=== PATIENT | male | born 2000 | race African-American/Black ===

== ENCOUNTER 2020-07-31 02:56 | Emergency (ER) | payer SELFPAY ==
[~2020-07-31] VITALS: Ht 190.5 cm; Wt 77.0 kg
--- NOTE | 2020-07-31 03:14 | PHYS DOC ---
Past History Alcohol Use: Occasionally Drug Use: Marijuana, Other (Street fentanyl and narcotics-nasal ( Snorted)) General Adult EDM: Chief Complaint: OVERDOSE HPI: HPI: ".. I thnik I snorted a Percocet.. ".. "I been coughing up some blood..." Patient is a 20 year old male who presents with above hx and complaints of over dosage of narcotic. Pt. respiratory failure, did respond to Narcan in field. Patient initially in respiratory arrest with sats in 70s. Patient does admit to past marijuana use and tobacco. No history immunosuppression. No history of travel. No history of specific ill contacts. Patient denies other drug use. Patient did give me permission to talk to mother and father. Discussed presentation with mother and father. They advised to their knowledge he did not abuse narcotics. Has been previously healthy. No history of family of pulmonary embolisms or DVTs or coagulopathy. No history recent travel outside the [place] area. No specific ill contacts. Patient admits to some " Snorting a Percocet. " Does have some nasal bleeding and coughing up some blood. Patient advised I could discuss his health history with his mother and father. Patient denies any recent fever, chills, or cough. Has had a cough with streaks of blood. Patient denies any history of tuberculosis contacts. Denies any recent fever or chills. Patient states all his respiratory symptoms started after snorting a reported crushed Percocet, b ut pt. advised may have been street fentanyl. Review of Systems: Review of Systems: Constitutional: Denies fever or chills Eyes: Denies change in visual acuity HENT: Denies nasal congestion or sore throat Respiratory: Complains of cough and shortness of breath Cardiovascular: Denies chest pain or edema GI: Denies abdominal pain, nausea, vomiting, bloody stools or diarrhea : Denies dysuria Musculoskeletal: Denies back pain or joint pain Integument: Denies rash Neurologic: Denies headache, focal weakness or sensory changes Endocrine: Denies polyuria or polydipsia Lymphatic: Denies swollen glands Psychiatric: Denies depression or anxiety Family History: Family History: Noncontributory to presentation Current Medications: Current Meds: See nursing for home meds Allergies: Allergies: No known drug allergies Physical Exam: PE: Constitutional: Well developed, well nourished, in acute distress, non-toxic appearance. [] HENT: Normocephalic, atraumatic, bilateral external ears normal, oropharynx moist, no oral exudates, nose very inflamed turbinates and mild Kisselbach bleeding bilateral. Eyes: PERRLA, EOMI, conjunctiva normal, no discharge. [] Neck: Normal range of motion, no tenderness, supple, no stridor. [] Cardiovascular: Tachycardia heart rate regular rhythm, no murmur [] Lungs & Thorax: Bilateral breath sounds equal at apex with crackles and some scattered wheezes throughout on auscultation []. Appears to have increased crackles and rhonchi in the left lung field. Patient hypoxic on room air in the 80s. Abdomen: Bowel sounds normal, soft, no tenderness, no masses, no pulsatile m asses. [] Skin: Warm, dry, no erythema, no rash. No IV injection sites noted Back: No tenderness, no CVA tenderness. [] Extremities: No tenderness, no cyanosis, no clubbing, ROM intact, no edema. No cording in legs. Neurologic: Alert and oriented X 3, moves all extremities on request, does have distal sensory, no focal deficits noted. [] Psychologic: Affect anxious, judgement normal, mood normal. [] EKG: EKG: My interpretation of EKG shows a sinus rhythm at 85 bpm. Mild J-point elevation but no findings of acute contralateral changes consistent with STEMI . Is an abnormal EKG. [] Radiology/Procedures: Radiology/Procedures: [address] [address] IMAGING REPORT Signed PATIENT: RUY VITALE ACCOUNT: [id number] : 2000 LOCATION: ER AGE: 20 SEX: M EXAM STATUS: REG ER ORD. PHYSICIAN: DERRICK FANG MD REASON: hypoxia, OMNI 350, 100ml PROCEDURE: CT ANGIOGRAPHY CHEST EXAM: CT ANGIOGRAPHY OF THE CHEST WITH AND WITHOUT CONTRAST. HISTORY: Hypoxia. TECHNIQUE: Computed tomographic angiography of the chest was performed before and after the intravenous administration of iodinated contrast. 3-D maximum intensity projections were also performed. One or more of the following individualized dose reduction techniques were utilized for this examination: 1. Automated exposure control. 2. Adjustment of the mA and/or kV according to patient size. 3. Use of iterative reconstruction technique. COMPARISON: None. FINDINGS: Images of the upper abdomen reveal no acute abnormality. Bone windows reveal no suspicious lesions. No pulmonary emboli are identified. There is no aortic dissection or aneurysm. There is a normal variant origin of the left vertebral artery directly from the aortic arch. Soft tissue density in the anterior mediastinal fat most likely reflects a thymic remnant. There are no pathologically enlarged mediastinal or axillary lymph nodes. There is no pleural or pericardial effusion. The heart is not enlarged. There are patchy and nodular groundglass infiltrates on the left greater than right in a relatively perihilar pattern. No endobronchial lesion or source for hemoptysis is identified. IMPRESSION: 1. Mild infiltrates on the left greater than right are consistent with atypical pneumonia, aspiration or possibly noncardiogenic pulmonary edema. 2. No pulmonary embolism. Electronically signed by: Massimo Sanchez MD (07/31/2020 5:17 AM) [facility] DICTATED AND SIGNED BY: YUKO SANCHEZ MD DATE: 07/31/20 05 CC: DERRICK FANG MD; PCP,NO ~ [][place] [address] IMAGING REPORT Signed PATIENT: RUY VITALE ACCOUNT: [id number] : 2000 LOCATION: ER AGE: 20 SEX: M EXAM STATUS: REG ER ORD. PHYSICIAN: DERRICK FANG MD REASON: cough up blood, hx hypoxia PROCEDURE: PORTABLE CHEST 1V EXAM: CHEST ONE VIEW. HISTORY: Hypoxia, hemoptysis. COMPARISON: Today's CT. FINDINGS: A frontal view of the chest is obtained. Mild airspace infiltrates on the left greater than right are better seen on today's CT. There is no pneumothorax or pleural effusion. The heart is not enlarged. IMPRESSION: 1. Mild atypical pneumonia versus noncardiogenic pulmonary edema pattern. Electronically signed by: Massimo Sanchez MD (07/31/2020 5:14 AM) [facility] DICTATED AND SIGNED BY: YUKO SANCHEZ MD DATE: 07/31/20 0514 CC: DERRICK FANG MD; PCP,NO ~ Heart Score: HEART Score for Chest Pain: HEART Score for Chest Pain Response (Comments) Value History Slighlty/Non-Suspicious 0 ECG Nonspecific Repolarizatio 1 Age < 45 0 Risk Factors 1 or 2 Risk Factors 1 Troponin < Normal Limit 0 Total 2 Risk Factors: Risk Factors: DM, Current or recent (<one month) smoker, HTN, HLP, family history of CAD, obesity. Risk Scores: Score 0 - 3: 2.5% MACE over next 6 weeks - Discharge Home Score 4 - 6: 20.3% MACE over next 6 weeks - Admit for Clinical Observation Score 7 - 10: 72.7% MACE over next 6 weeks - Early Invasive Strategies Course & Med Decision Making: Course & Med Decision Making Pertinent Labs and Imaging studies reviewed. (See chart for details) Discussed presentation testing and treatment plan with mother and father and patient. Discussed presentation testing and treatment plan with . Plan transfer to [facility] for Pulmonary consult. Will not cover with antibiotics at this time with no fever and normal white count. Suspect this is noncardiac pulmonary edema second to the narcotic overdose. Also possible case of viral syndrome with atypical pneumonia. Plan Covid testing after he arrives at [facility] since we do not have rapid Covid testing here at [facility]. Patient initial troponin was normal. Alcohol level is 29. Normal troponin.0.036 Critical care 90 min. Impression: 1. Narcotic Overdose- Responded to Narcan 2. Respiratory failure- hypoxia 3. Diffuse pulmonary infiltrates-noncardiac pulmonary edema secondary to narcotic overdose versus atypical viral pneumonia versus aspiration pneumonitis 4. Elevation D-dimer 2.16 [] Dragon Disclaimer: Dragon Disclaimer: This electronic medical record was generated, in whole or in part, using a voice recognition dictation system. Departure Departure: Disposition: 01 DC HOME SELF CARE/HOMELESS Condition: STABLE DERRICK FANG MD Jul 31, 2020 03:14
[2020-07-31] MEDS ORDERED: IOHEXOL 350 MG/ML 100 ML VIAL. IV ONE (03:45)
[2020-07-31] MEDS ORDERED: CONTRAST GIVEN. MC PRN (03:45)
[2020-07-31] MEDS ORDERED: IV RINGERS SOLUTION,LACTATED 1,000 ML IV SCH (03:45)
[2020-07-31] MEDS ORDERED: ALBUTEROL SULFATE 8GM INHALER. INH ONE (03:45)
[2020-07-31 04:13] LABS: BGAS PH 7.37 (7.35-7.46)
[2020-07-31 04:18] LABS: BASO % 1 % (0-3); EOS % 1 % (0-3); HEMATOCRIT 40.7 % (39.0-53.0); HEMOGLOBIN 13.4 g/dL (13.0-17.5); LYMPH # 1.1 x10^3/uL (1.0-4.8); LYMPH % 19 % (24-48); MEAN CORPUSCULAR HEMOGLOBIN 28 pg (25-35); MEAN CORPUSCULAR HGB CONC 33 g/dL (31-37); MEAN CORPUSCULAR VOLUME 86 fL (79-100); MONO # 0.5 x10^3/uL (0.0-1.1); MONO % 9 % (0-9); NEUT # 4.1 x10^3uL (1.8-7.7); NEUT % 70 % (31-73); PLATELET COUNT 267 x10^3/uL (140-400); RED BLOOD COUNT 4.72 x10^6/uL (4.30-5.70); WHITE BLOOD COUNT 5.8 x10^3/uL (4.0-11.0)
[2020-07-31 04:28] LABS: CALCIUM 8.8 mg/dL (8.5-10.1); CREATININE 1.2 mg/dL (0.7-1.3); GFR 92.5; POTASSIUM 3.7 mmol/L (3.5-5.1)
[2020-07-31 04:34] LABS: DIRECT BILIRUBIN 0.2 mg/dL (0.0-0.2); MAGNESIUM 1.8 mg/dL (1.8-2.4); TOTAL BILIRUBIN 0.5 mg/dL (0.2-1.0); TOTAL PROTEIN 7.5 g/dL (6.4-8.2)
--- NOTE | 2020-07-31 05:17 | RAD ---
EXAM: CHEST ONE VIEW. HISTORY: Hypoxia, hemoptysis. COMPARISON: Today's CT. FINDINGS: A frontal view of the chest is obtained. Mild airspace infiltrates on the left greater than right are better seen on today's CT. There is no pneumothorax or pleural effusion. The heart is not enlarged. IMPRESSION: 1. Mild atypical pneumonia versus noncardiogenic pulmonary edema pattern. Electronically signed by: Massimo Sanchez MD (07/31/2020 5:14 AM) [facility]
--- NOTE | 2020-07-31 05:20 | RAD ---
EXAM: CT ANGIOGRAPHY OF THE CHEST WITH AND WITHOUT CONTRAST. HISTORY: Hypoxia. TECHNIQUE: Computed tomographic angiography of the chest was performed before and after the intravenous administration of iodinated contrast. 3-D maximum intensity projections were also performed. One or more of the following individualized dose reduction techniques were utilized for this examination: 1. Automated exposure control. 2. Adjustment of the mA and/or kV according to patient size. 3. Use of iterative reconstruction technique. COMPARISON: None. FINDINGS: Images of the upper abdomen reveal no acute abnormality. Bone windows reveal no suspicious lesions. No pulmonary emboli are identified. There is no aortic dissection or aneurysm. There is a normal variant origin of the left vertebral artery directly from the aortic arch. Soft tissue density in the anterior mediastinal fat most likely reflects a thymic remnant. There are no pathologically enlarged mediastinal or axillary lymph nodes. There is no pleural or pericardial effusion. The heart is not enlarged. There are patchy and nodular groundglass infiltrates on the left greater than right in a relatively perihilar pattern. No endobronchial lesion or source for hemoptysis is identified. IMPRESSION: 1. Mild infiltrates on the left greater than right are consistent with atypical pneumonia, aspiration or possibly noncardiogenic pulmonary edema. 2. No pulmonary embolism. Electronically signed by: Massimo Sanchez MD (07/31/2020 5:17 AM) [facility]
--- NOTE | 2020-07-31 06:23 | EKG ---
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
[2020-07-31 06:45] LABS: BARBITURATES NEG (NEG); BENZODIAZEPINES NEG (NEG); CANNABINOIDS POS (NEG); COCAINE NEG (NEG); METHADONE NEG (NEG); OPIATES NEG (NEG); PHENCYCLIDINE NEG (NEG)
[2020-07-31 06:47] LABS: AMPHETAMINE/METHAMPHETAMINE NEG (NEG)
[2020-07-31 07:20] VITALS: BP 132/46
[2020-07-31 07:36] LABS: BACTERIA,URINE 0 /HPF (0-FEW); BILIRUBIN,URINE NEG (NEG); CLARITY,URINE CLEAR; COLOR,URINE YELLOW; GLUCOSE,URINE NEG (NEG); NITRITE,URINE NEG (NEG); SQUAMOUS EPITHELIAL CELL,UR OCC /LPF; UROBILINOGEN,URINE 0.2 mg/dL (0.2 mg/dL)
[2020-07-31 07:37] LABS: HYALINE CASTS, URINE OCC /HPF
== END 2020-07-31 08:31 | disposition short-term general hospital (02) ==
LOC: ER 02:56
DX: T40.691A Poisoning by other narcotics, accidental (unintentional), initial encounter (principal); J96.91 Respiratory failure, unspecified with hypoxia; J81.1 Chronic pulmonary edema; R79.1 Abnormal coagulation profile; F12.10 Cannabis abuse, uncomplicated; Y92.89 Other specified places as the place of occurrence of the external cause
CPT/HCPCS: 36415; 36600; 71045; 71275; 80048; 80076; 80307; 81001; 82803; 83605; 83690; 83735; 83880; 84443; 84484; 85025; 85379; 85610; 85730; 93005; 94640; 96360; 99291; 99292; G0480; J7120; J7613; Q9967; 94664

== ENCOUNTER 2021-12-30 19:15 | Emergency (ER) | payer SELFPAY ==
[~2021-12-30] VITALS: Ht 190.5 cm; Wt 77.0 kg
[2021-12-30 19:15] VITALS: BP 146/78
[2021-12-30] MEDS ORDERED: IV NORMAL SALINE 1,000ML 1,000 ML IV ONE (20:00)
[2021-12-30 20:25] LABS: BASO % 1 % (0-3); EOS % 0 % (0-3); HEMATOCRIT 38.7 % (39.0-53.0); HEMOGLOBIN 12.7 g/dL (13.0-17.5); LYMPH # 1.4 x10^3/uL (1.0-4.8); LYMPH % 33 % (24-48); MEAN CORPUSCULAR HEMOGLOBIN 28 pg (25-35); MEAN CORPUSCULAR HGB CONC 33 g/dL (31-37); MEAN CORPUSCULAR VOLUME 86 fL (79-100); MONO # 0.6 x10^3/uL (0.0-1.1); MONO % 13 % (0-9); NEUT # 2.3 x10^3uL (1.8-7.7); NEUT % 53 % (31-73); PLATELET COUNT 308 x10^3/uL (140-400); RED BLOOD COUNT 4.48 x10^6/uL (4.30-5.70); RED CELL DISTRIBUTION WIDTH 15.1 % (11.5-14.5); WHITE BLOOD COUNT 4.3 x10^3/uL (4.0-11.0)
[2021-12-30 20:26] LABS: CLARITY,URINE CLEAR; COLOR,URINE YELLOW; GLUCOSE,URINE NEG (NEG)
[2021-12-30 20:27] LABS: BACTERIA,URINE 0 /HPF (0-FEW); NITRITE,URINE NEG (NEG); RBC,URINE 0 /HPF (0-2); UROBILINOGEN,URINE 0.2 mg/dL (0.2 mg/dL); WBC,URINE 0 /HPF (0-4)
[2021-12-30 20:34] LABS: CALCIUM 9.1 mg/dL (8.5-10.1); CREATININE 1.1 mg/dL (0.7-1.3); GFR 101.3; POTASSIUM 3.6 mmol/L (3.5-5.1)
[2021-12-30 20:36] LABS: AMPHETAMINE/METHAMPHETAMINE NEG (NEG); BARBITURATES NEG (NEG); BENZODIAZEPINES NEG (NEG); CANNABINOIDS POS (NEG); COCAINE POS (NEG); METHADONE NEG (NEG); OPIATES NEG (NEG); PHENCYCLIDINE NEG (NEG)
[2021-12-30 20:40] LABS: ALBUMIN/GLOBULIN RATIO 1.1 (1.0-1.7); TOTAL BILIRUBIN 0.6 mg/dL (0.2-1.0); TOTAL PROTEIN 7.8 g/dL (6.4-8.2)
--- NOTE | 2021-12-30 20:49 | PHYS DOC ---
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 Patient states on Saturday he did cocaine and marijuana. Patient states he has not been able to sleep since that night. Patient states he has been very anxious and paranoid. Denies hearing or seeing things. Patient was so upset that he [facility] his [facility] Patient's temperature was only 100.8 on arrival. Patient states he is only smoked marijuana today. Patient is a daily marijuana user. Patient is alert and oriented x4. No medical history. (HATTIE IRIZARRY APRN) Review of Systems: Review of Systems: ROS At least 10 ROS systems have been reviewed and are negative except as documented in the HPI. General: Negative except as outlined in HPI above. Skin: Negative except as outlined in HPI above. HEENT: Negative except as outlined in HPI above. Neck: Negative except as outlined in HPI above. Respiratory: Negative except as outlined in HPI above.. Cardiovascular: Negative except as outlined in HPI above. Abdomen: Negative except as outlined in HPI above. : Negative except as outlined in HPI above. Back/MSK: Negative except as outlined in HPI above. Neuro: Negative except as outlined in HPI above. Psych: Negative except as outlined in HPI above. (HATTIE IRIZARRY APRN) Current Medications: Current Meds: Current Medications Medications (Trade) Dose Ordered Sig/Russell Start Time Stop Time Status Last Admin Dose Admin Sodium Chloride 1,000 ml @ 1,000 mls/hr 1X ONCE 12/30/21 20:00 12/30/21 20:59 12/30/21 20:00 1,000 MLS/HR (HATTIE IRIZARRY APRN) Allergies: Allergies: Allergies Coded Allergies Type Severity Reaction Last Updated Verified No Known Drug Allergies 07/31/20 No (HATTIE IRIZARRY APRN) Physical Exam: PE: Constitutional: Well developed, well nourished, no acute distress, non-toxic appearance. [] HENT: bilateral external ears normal, oropharynx moist, no oral exudates, nose normal. [] Eyes: PERRLA, conjunctiva normal, no discharge. [] Neck: Normal range of motion, no tenderness, supple, no stridor. [] Cardiovascular:Heart rate regular rhythm, no murmur [] Lungs & Thorax: Bilateral breath sounds clear to auscultation [] Abdomen: Bowel sounds normal, soft, no tenderness, no masses, no pulsatile mass es. [] Skin: Warm, dry, no erythema, no rash. [] Back: No tenderness, no CVA tenderness. [] Extremities: No tenderness, no cyanosis, no clubbing, ROM intact, no edema. [] Neurologic: Alert and oriented X 3, normal motor function, normal sensory function, no focal deficits noted. [] Psychologic: Flat affect, abnormal judgment (HATTIE IRIZARRY APRN) Current Patient Data: Labs: Laboratory Tests Test 12/30/21 19:40 Urine Collection Type Clean catch Urine Color Yellow Urine Clarity Clear Urine pH 7.0 Urine Specific Blythe >=1.030 Urine Protein Trace (NEG-TRACE) Urine Glucose (UA) Neg mg/dL (NEG) Urine Ketones (Stick) Neg mg/dL (NEG) Urine Blood Neg (NEG) Urine Nitrite Neg (NEG) Urine Bilirubin Neg (NEG) Urine Urobilinogen Dipstick 0.2 mg/dL (0.2 mg/dL) Urine Leukocyte Esterase Neg (NEG) Urine RBC 0 /HPF (0-2) Urine WBC 0 /HPF (0-4) Urine Squamous Epithelial Cells None /LPF Urine Bacteria 0 /HPF (0-FEW) Vital Signs: Vital Signs Date Time Temp Pulse Resp B/P (MAP) Pulse Ox O2 Delivery O2 Flow Rate FiO2 12/30/21 19:15 100.8 77 18 146/78 (100) 98 Room Air (HATTIE IRIZARRY APRN) EKG: EKG: [] (HATTIE IRIZARRY APRN) Radiology/Procedures: Radiology/Procedures: [] (HATTIE IRIZARRY APRN) Heart Score: C/O Chest Pain: No Risk Factors: Risk Factors: DM, Current or recent (<one month) smoker, HTN, HLP, family history of CAD, obesity. Risk Scores: Score 0 - 3: 2.5% MACE over next 6 weeks - Discharge Home Score 4 - 6: 20.3% MACE over next 6 weeks - Admit for Clinical Observation Score 7 - 10: 72.7% MACE over next 6 weeks - Early Invasive Strategies (HATTIE IRIZARRY APRN) Course & Med Decision Making: Course & Med Decision Making Pertinent Labs and Imaging studies reviewed. (See chart for details) [] 21-year-old male presents with trouble sleeping. Patient reports he did marijuana along with cocaine on Saturday. Patient states since then he has had trouble sleeping and has felt paranoid and off. Patient is alert and oriented x4 but stare off mid conversation. Patient has smoked marijuana today. Patient is a daily marijuana user. All labs unremarkable. UA is positive for marijuana and cocaine. Patient given NS bolus. patient is hemodynamically stable. Patient given Benadryl to help with sleeping. Patient states his father is here to pick him up and he is ready to be discharged home. Patient states he feels better. Patient symptoms are most likely related to lack of sleep. Discussed return precautions. Patient verbalizes understanding. (HATTIE IRIZARRY APRN) Dragon Disclaimer: Shantel Disclaimer: This electronic medical record was generated, in whole or in part, using a voice recognition dictation system. (HATTIE IRIZARRY APRN) Departure Departure: Impression: Primary Impression: Insomnia Qualified Codes: G47.00 - Insomnia, unspecified Additional Impression: Drug abuse Disposition: HOME / SELF CARE / HOMELESS Condition: STABLE Referrals: PCP,MIMI (PCP) Patient Instructions: Insomnia Additional Instructions: EMERGENCY DEPARTMENT GENERAL DISCHARGE INSTRUCTIONS Thank you for coming to [facility] (ED) today and trusting us with you care. We trust that you had a positivie experience in our Emergency Department. If you wish to speak to the department management, you may call the director at [phone]. YOUR FOLLOW UP INSTRUCTIONS ARE FOLLOWS: 1. Do you have a private Doctor? If you do not have a private doctor, please ask for a resource list of physicians or clinics that may be able to assist you with follow up care. 2. The Emergency Physician has interpreted your x-rays. The X-Ray specialist will also review them. If there is a change in the findings, you will be notified in 48 hours when at all possible. 3. A lab test or culture has been done, your results will be reviewed and you will be notified if you need a change in treatment. ADDITIONAL INSTRUCTIONS AND INFORMATION: 1. Your care today has been supervised by a physician who is specially trained in emergency care. Many problems require more than one evaluation for a complete diagnosis and treatment. We recommend that you schedule your follow up appointment as recommended to ensure complete treatment of you illness or injury. If you are unable to obtain follow up care and continue to have a problem, or if your condition worsens, we recommend that you return to the ED. 2. We are not able to safely determine your condition over the phone nor are we able to give sound medical advice over the phone. For these safety reasons, if you call for medical advice we will ask you to come to the ED for further evaluation. 3. If you have any questions regarding these discharge instructions please call the ED at [phone]. SAFETY INFORMATION: In the interest of safety, wellness, and injury prevention; we encourage you to wear your sealbelt, if you smoke; quite smoking, and we encourage family to use a protective helmet for bicycling and other sporting events that present an increased risk for head injury. IF YOUR SYMPTOMS WORSEN OR NEW SYMPTOMS DEVELOP, OR YOU HAVE CONCERNS ABOUT YOUR CONDITION; OR IF YOUR CONDITION WORSENS WHILE YOU ARE WAITING FOR YOUR FOLLOW UP APPOINTMENT; EITHER CONTACT YOUR PRIMARY CARE DOCTOR, THE PHYSICIAN WHOSE NAME AND NUMBER YOU WERE GIVEN, OR RETURN TO THE ED IMMEDIATELY. Attending Signature Attending Signature I have participated in the care of this patient and I have reviewed and agree with all pertinent clinical information above including history, exam, and recommendations. (DERRICK FANG MD) Dragon Disclaimer This chart was dictated in whole or in part using Voice Recognition software in a busy, high-work load, and often noisy Emergency Department environment. It may contain unintended and wholly unrecognized errors or omissions. (DERRICK FANG MD) HATTIE IRIZARRY APRN Dec 30, 2021 20:49 DERRICK FANG MD Dec 31, 2021 00:03
[2021-12-30] MEDS ORDERED: diphenhydrAMINE 50 MG/ML VIAL IVP ONE (21:15)
== END 2021-12-30 21:34 | disposition home or self-care (01) ==
LOC: ER 19:15
DX: G47.00 Insomnia, unspecified (principal); F12.20 Cannabis dependence, uncomplicated
CPT/HCPCS: 36415; 80053; 80307; 81001; 85025; 96361; 96374; 99283; G0480; J1200; J7030